=== PATIENT | male | born 2000 | race Caucasian/White ===

== ENCOUNTER 2022-08-19 15:41 | Emergency (ER) | payer SELFPAY ==
[~2022-08-19] VITALS: Ht 167.6 cm; Wt 59.0 kg
--- NOTE | 2022-08-19 16:30 | NUR ---
CAME IN FOR L GROIN PAIN RADIATING TO L LEG x 5DAYS, -TRAUMA
--- NOTE | 2022-08-19 16:45 | NUR ---
urine sample obtained sent to lab
[2022-08-19 18:10] LABS: BILIRUBIN,URINE NEGATIVE (NEGATIVE); COLOR,URINE YELLOW (YELLOW); LEUKOCYTE ESTERASE ,URINE NEGATIVE (NEGATIVE); NITRITE, URINE NEGATIVE (NEGATIVE); PH,URINE 6.5 (5.0-8.0); PROTEIN,URINE NEGATIVE (NEGATIVE); UGLUCOSE NEGATIVE (NEGATIVE); UROBILINOGEN,URINE 0.2 EU/dL (0.2)
[2022-08-19 18:32] LABS: BACTERIA,URINE 1+ /HPF (None Seen); RBC,URINE NONE SEEN /HPF (0-2); SQUAMOUS EPITHELIAL CELL,UR 0-2 /HPF (None Seen); WBC,URINE 0-2 /HPF (0-3)
[2022-08-19 20:00] VITALS: BP 146/80
--- NOTE | 2022-08-19 20:00 | NUR ---
Patient discharged to home in stable condition. Written and verbal after care instructions given. Patient verbalizes understanding of instruction.
== END 2022-08-19 20:00 | disposition home or self-care (01) ==
LOC: ER 15:43
DX: N43.3 Hydrocele, unspecified (principal); F32.A Depression, unspecified; F41.9 Anxiety disorder, unspecified; F17.200 Nicotine dependence, unspecified, uncomplicated; Z88.8 Allergy status to other drugs, medicaments and biological substances
CPT/HCPCS: 76870-TC; 81001; 87086-TC; 87491; 87591

== ENCOUNTER 2022-09-20 14:31 | Emergency (ER) | payer BC ==
[~2022-09-20] VITALS: Ht 165.1 cm; Wt 59.4 kg
--- NOTE | 2022-09-20 18:00 | NUR ---
BIBS C/O SORETHROAT, LEFT EAR PAIN AND LEFT SIDED HEADACHE X 1 MONTH. AMBULATORY, PLACED ON BED, BREATHING EVEN AND UNLABORED.
--- NOTE | 2022-09-20 18:35 | NUR ---
BLOOD DRAWN AND SENT TO LAB
[2022-09-20 19:17] LABS: CALCIUM, SERUM 9.3 mg/dL (8.5-10.1); CARBON DIOXIDE 31 mmol/L (21-32); CHLORIDE 104 mmol/L (98-107); GLUCOSE 74 mg/dL (74-106); POTASSIUM 3.4 mmol/L (3.5-5.1); SODIUM SERUM 141 mmol/L (136-145); UREA NITROGEN, BLOOD 11 mg/dL (7-18)
[2022-09-20 20:15] LABS: BASOPHILS % (AUTO) 0.4 % (0.0-2.0); EOSINOPHILS % (AUTO) 0.3 % (0.0-6.0); HEMATOCRIT 50 % (39-51); HEMOGLOBIN 16.9 g/dL (13.5-17.5); LYMPHOCYTES # (AUTO) 1.8 K/uL (0.8-4.8); LYMPHOCYTES % (AUTO) 29.4 % (20.0-44.0); MEAN CORPUSCULAR HGB CONC 34 g/dl (31.0-36.0); MEAN CORPUSCULAR VOLUME 92 fL (80-96); MONOCYTES # (AUTO) 0.5 K/uL (0.1-1.30); MONOCYTES % (AUTO) 7.6 % (2.0-12.0); NEUTROPHILS # (AUTO) 3.8 K/uL (1.8-8.9); NEUTROPHILS % (AUTO) 62.3 % (43.0-81.0); PLATELET COUNT (AUTO) 224 K/uL (150-450); WHITE BLOOD COUNT (AUTO) 6.1 K/uL (4.3-11.0)
--- NOTE | 2022-09-20 20:40 | NUR ---
Patient discharged to home in stable condition. Written and verbal after care instructions given. Patient verbalizes understanding of instruction.
[2022-09-20 20:54] VITALS: BP 130/85
== END 2022-09-20 20:40 | disposition home or self-care (01) ==
LOC: ER 15:04
DX: R51.9 Headache, unspecified (principal); R07.89 Other chest pain; R22.1 Localized swelling, mass and lump, neck; F32.A Depression, unspecified; F41.9 Anxiety disorder, unspecified; Z88.8 Allergy status to other drugs, medicaments and biological substances; F17.200 Nicotine dependence, unspecified, uncomplicated
CPT/HCPCS: 36415; 71045-TC; 80048-TC; 84443-TC; 84484-TC; 85025-TC